=== PATIENT | female | born 1975 | race Caucasian/White ===

== ENCOUNTER 2018-04-24 15:11 | Emergency (ER) | payer SELFPAY ==
[~2018-04-24] VITALS: Ht 154.9 cm; Wt 95.5 kg
[2018-04-24 15:19] VITALS: Ht 154.9 cm; Wt 95.5 kg
[2018-04-24] MEDS ORDERED: ROBAXIN500 MG PO (16:24)
[2018-04-24] MEDS ORDERED: NAPROSYN500 MG PO (16:24)
[2018-04-24 17:02] VITALS: BP 148/92
== END 2018-04-24 16:50 | disposition home or self-care (01) ==
LOC: D.ER 15:11
DX: M17.11 Unilateral primary osteoarthritis, right knee (principal); M25.461 Effusion, right knee

== ENCOUNTER 2018-07-17 06:48 | Emergency (ER) | payer SELFPAY ==
[~2018-07-17] VITALS: Ht 154.9 cm; Wt 95.5 kg
[~2018-07-17 06:48] MED LIST: NAPROSYN500 MG PO; ROBAXIN500 MG PO
[2018-07-17 07:00] VITALS: Ht 154.9 cm; Wt 95.5 kg
[2018-07-17] MEDS ORDERED: ALDOMET250 MG PO (07:25)
[2018-07-17 07:48] LABS: BASOPHILS 0.2 % (0-2); EOSINOPHILS 1.1 % (0-7); HEMATOCRIT 42.3 % (36.0-48.0); HEMOGLOBIN 14.5 g/dL (12-16); IMMATURE GRANULOCYTES 0.3 % (0-5); MCH 30.6 pg (26.0-34.0); MCHC 34.3 g/dL (31.0-37.0); MCV 89.2 fL (80.0-100.0); MEAN PLATELET VOLUME 10.5 fL (7.4-10.4); MONOCYTES 6.9 % (2-11); NEUTROPHILS 65.5 % (40-80); PLATELET COUNT 195 10x3/uL (130-400); RBC 4.74 10x6/uL (4.00-5.40); RDW 12.8 % (11.5-14.5); WBC 6.2 10x3/uL (4.8-10.8)
[2018-07-17 07:56] VITALS: BP 177/108
[2018-07-17 07:59] LABS: ALBUMIN 3.3 g/dL (3.4-5.0); ALKALINE PHOSPHATASE 65 U/L (46-116); ALT (SGPT) 18 U/L (10-68); BILIRUBIN - TOTAL 0.65 mg/dL (0.2-1.3); CALC OSMOLALITY 283 mosm/kg (275-300); CALCIUM 8.9 mg/dL (8.5-10.1); CARBON DIOXIDE 27.8 mmol/L (21.0-32.0); CHLORIDE - SERUM 103 mmol/L (98-107); CREATININE - SERUM 0.7 mg/dL (0.6-1.3); GLUCOSE 103 mg/dL (74-106); POTASSIUM - SERUM 3.4 mmol/L (3.5-5.1); PROTEIN - SERUM 7.7 g/dL (6.4-8.2); SODIUM 142 mmol/L (136-145); UREA NITROGEN 14 mg/dL (7-18); eGFR NON AFRICAN AMERICAN > 90 mL/min (90-120)
== END 2018-07-17 07:57 | disposition home or self-care (01) ==
LOC: D.ER 06:48
PROVIDERS: Family Medicine
DX: I10 Essential (primary) hypertension (principal); R42 Dizziness and giddiness